=== PATIENT | female | born 1995 | race Caucasian/White ===

== ENCOUNTER 2019-06-21 00:45 | Emergency (ER) | payer MEDICAID ==
[~2019-06-21] VITALS: Ht 160 cm; Wt 67.6 kg
[2019-06-21 01:20] VITALS: BP_SYST 120
[2019-06-21 03:41] VITALS: BP_SYST 114
== END 2019-06-21 03:41 | disposition home or self-care (01) ==
LOC: EDBD 00:45 → SED 00:45
DX: R07.89 Other chest pain (principal); F41.9 Anxiety disorder, unspecified
CPT/HCPCS: 71046-TC; 99283